=== PATIENT | male | born 1965 | race Caucasian/White ===

== ENCOUNTER 2018-06-07 08:55 | Inpatient (IN) | payer OTHER ==
[~2018-06-07 08:55] MED LIST: EPHEDrine SULFATE 50 MG/5 ML SYG; FAMOTIDINE 20 MG INJ; GLYCOPYRROLATE 0.4 MG INJ; NEOSTIGMINE 3 MG/3 ML SYRINGE; ROCURONIUM 50 MG INJ; SEVOFLURANE 15 MIN
[2018-06-07] MEDS ORDERED: PROPOFOL 20 ML (11:22)
[2018-06-07] MEDS ORDERED: ROCURONIUM 50 MG INJ (11:22)
[2018-06-07] MEDS ORDERED: MIDAZOLAM 1 MG/ML 2 ML INJ (11:22)
[2018-06-07] MEDS ORDERED: CEPASTAT LOZENGE MT (11:30)
[2018-06-07] MEDS ORDERED: CARISOPRODOL 350 MG TAB PO (11:30)
[2018-06-07] MEDS ORDERED: NALOXONE (0.4 MG/ML) INJ IV (11:30)
[2018-06-07] MEDS ORDERED: DIPHENHYDRAMINE 50 MG INJ IV (11:30)
[2018-06-07] MEDS ORDERED: ACETAMINOPHEN 325 MG TAB PO (11:30)
[2018-06-07] MEDS ORDERED: HYDROmorphONE 0.5 MG/0.5 ML SYG IV ×2 (11:30→18:30)
[2018-06-07] MEDS ORDERED: DIPHENHYDRAMINE 25 MG CAP PO (11:30)
[2018-06-07] MEDS ORDERED: BISACODYL 10 MG SUPP PR (11:30)
[2018-06-07] MEDS ORDERED: CEFAZOLIN 1 GM INJ ×2 (11:34→15:19)
[2018-06-07] MEDS: HEPARIN 1000 UNITS/ML 10 ML INJ (13:15)
[2018-06-07] MEDS: BUPIVACAINE 0.25%/EPI (SDV) 10 ML INJ ×2 (13:16→17:34)
[2018-06-07] MEDS: CEFAZOLIN 1 GM INJ (13:16)
[2018-06-07] MEDS: SURGIFOAM POWDER 1 GM KIT ×3 (13:17→17:07)
[2018-06-07] MEDS: THROMBIN 5000 UNIT VIAL ×2 (13:18→13:33)
[2018-06-07] MEDS: GELATIN SIZE 100 SPONGE ×2 (13:18→13:22)
[2018-06-07] MEDS ORDERED: ONDANSETRON 4 MG INJ (13:40)
[2018-06-07] MEDS ORDERED: METOCLOPRAMIDE 10 MG INJ (13:40)
[2018-06-07] MEDS ORDERED: DEXAMETHASONE 4 MG/ML 1 ML INJ (13:40)
[2018-06-07] MEDS: CEFAZOLIN 1 GM/50 ML (PMX) 50 ML IVPB ×2 (14:00→22:15)
[2018-06-07] MEDS ORDERED: ROPIVACAINE 0.5 % 30 ML VIAL (14:17)
[2018-06-07] MEDS ORDERED: HYDROmorphONE 2 MG/ML SYG (15:24)
[2018-06-07] MEDS ORDERED: PHENYLephrine (100 MCG/ML) 5ML SYG ×2 (15:50→16:44)
[2018-06-07] MEDS: HYDROmorphONE 0.2 MG/ML PCA IV (18:17)
[2018-06-07] MEDS: D5W-0.45 NACL + KCL 20 MEQ 1,000 ML IV ×2 (20:46→21:15)
[2018-06-07] MEDS: DOCUSATE SODIUM 100 MG CAP PO (20:46)
[2018-06-08] MEDS: HYDROmorphONE 0.2 MG/ML PCA IV ×3 (04:55→23:38)
[2018-06-08 05:09] LABS: ADD MAN DIFF? NO
[2018-06-08 05:21] LABS: BASOPHILS % 0.1 % (0.0-2.0); HEMATOCRIT 35.7 % (42.0-52.0); HEMOGLOBIN 11.7 g/dl (14.0-18.0); LYMPHOCYTES # 1.3 10^3/ul (0.8-2.9); LYMPHOCYTES % 7.2 % (15.0-51.0); MEAN CORPUSCULAR HEMOGLOBIN 29.7 pg (29.0-33.0); MEAN CORPUSCULAR HGB CONC 32.8 g/dl (32.0-37.0); MEAN CORPUSCULAR VOLUME 90.6 fl (82.0-101.0); MEAN PLATELET VOLUME 11.8 fl (7.4-10.4); MONOCYTE # 1.5 10^3/ul (0.3-0.9); MONOCYTES % 8.2 % (0.0-11.0); NEUTROPHILS % 84.1 % (39.0-77.0); PLATELET COUNT 277 10^3/UL (140-415); RED BLOOD COUNT 3.94 10^6/ul (4.70-6.10)
[2018-06-08 05:21] LABS: WHITE BLOOD COUNT 17.9 10^3/ul (4.8-10.8)
[2018-06-08 05:31] LABS: ANION GAP 11 (5-13); BLOOD UREA NITROGEN 12 mg/dl (7-20); CALCIUM 8.9 mg/dl (8.4-10.2); CARBON DIOXIDE 26 mmol/L (21-31); CHLORIDE 103 mmol/L (97-110); CREATININE 0.89 mg/dl (0.61-1.24); Estimated GFR > 60 mL/min (>60); GLUCOSE 151 mg/dl (70-220); POTASSIUM 4.8 mmol/L (3.5-5.1); SODIUM 140 mmol/L (135-144)
[2018-06-08] MEDS: PANTOPRAZOLE 40 MG INJ IV (06:04)
[2018-06-08] MEDS: CEFAZOLIN 1 GM/50 ML (PMX) 50 ML IVPB (06:05)
[2018-06-08] MEDS: DOCUSATE SODIUM 100 MG CAP PO ×2 (08:41→21:32)
[2018-06-08] MEDS: D5W-0.45 NACL + KCL 20 MEQ 1,000 ML IV ×3 (08:41→21:32)
[2018-06-09 05:19] LABS: ADD MAN DIFF? NO
[2018-06-09 05:24] LABS: WHITE BLOOD COUNT 13.5 10^3/ul (4.8-10.8)
[2018-06-09 05:24] LABS: BASOPHILS % 0.2 % (0.0-2.0); EOSINOPHILS % 0.1 % (0.0-7.0); HEMATOCRIT 33.8 % (42.0-52.0); HEMOGLOBIN 10.8 g/dl (14.0-18.0); LYMPHOCYTES % 14.6 % (15.0-51.0); MEAN CORPUSCULAR HEMOGLOBIN 29.3 pg (29.0-33.0); MEAN CORPUSCULAR VOLUME 91.6 fl (82.0-101.0); MEAN PLATELET VOLUME 11.4 fl (7.4-10.4); MONOCYTE # 1.5 10^3/ul (0.3-0.9); NEUTROPHILS % 73.9 % (39.0-77.0); PLATELET COUNT 218 10^3/UL (140-415); RED BLOOD COUNT 3.69 10^6/ul (4.70-6.10)
[2018-06-09] MEDS: PANTOPRAZOLE (EC) 40 MG TAB PO (05:47)
[2018-06-09 05:54] LABS: ANION GAP 7 (5-13); BLOOD UREA NITROGEN 10 mg/dl (7-20); CALCIUM 8.3 mg/dl (8.4-10.2); CARBON DIOXIDE 30 mmol/L (21-31); CHLORIDE 101 mmol/L (97-110); Estimated GFR > 60 mL/min (>60); GLUCOSE 110 mg/dl (70-220); POTASSIUM 4.6 mmol/L (3.5-5.1); SODIUM 138 mmol/L (135-144)
[2018-06-09] MEDS: HYDROmorphONE 0.2 MG/ML PCA IV (06:32)
[2018-06-09] MEDS: DOCUSATE SODIUM 100 MG CAP PO (09:36)
[2018-06-09] MEDS: HYDROCODONE/APAP (10/325) TAB PO ×2 (09:37→14:53)
[2018-06-09] MEDS: ONDANSETRON 4 MG INJ IV (10:25)
[2018-06-09] MEDS: D5W-0.45 NACL + KCL 20 MEQ 1,000 ML IV (13:15)
== END 2018-06-09 13:30 | disposition home or self-care (01) | DRG 460 ==
LOC: REC 08:55 → MS1 19:41
PROC: 0SG30A0 Fusion of Lumbosacral Joint with Interbody Fusion Device, Anterior Approach, Anterior Column, Open Approach (ICD-10-PCS; principal; 2018-06-07 11:00)
PROC: 07DS3ZZ Extraction of Vertebral Bone Marrow, Percutaneous Approach (ICD-10-PCS; 2018-06-07 11:00)
PROC: 4A11X4G Monitoring of Peripheral Nervous Electrical Activity, Intraoperative, External Approach (ICD-10-PCS; 2018-06-07 11:00)
DX: M51.37 Other intervertebral disc degeneration, lumbosacral region (principal); I10 Essential (primary) hypertension; Z85.828 Personal history of other malignant neoplasm of skin
CPT/HCPCS: 72114; 80048; 83735; 85025; 86850; 86900; 86901; 86920; 86999; 87086; 88304; 97116; 97161; 97530